=== PATIENT | female | born 1970 | race American Indian/Alaskan Native ===

== ENCOUNTER 2019-12-21 08:40 | Emergency (ER) | payer OTHER ==
[2019-12-21 08:48] VITALS: BP 125/81
[2019-12-21] MEDS ORDERED: LIDOCAINE (1%) 10 MG/1 ML VIAL 20 ML MDV INFILTRATI ONE (09:07)
--- NOTE | 2019-12-21 09:09 | Emergency Department Report ---
HPI - General Chief Complaint: Skin/Abscess/Foreign Body Time Seen by Provider: 12/21/19 08:58 - HPI HPI: This is a 49-year-old female presents to the emergency department with a complaint of a one-week history of a "boil" to the right armpit and to the left side of the head/neck, just behind the left ear. The patient went to an urgent care and was told to use some warm compresses but that has not been providing any relief. She denies any other past medical history. She denies any fever, headache. No recent travel or sick contacts at home. The patient has never had this occur previously. ED Past Medical Hx - Past Medical History Previous Medical History?: No - Surgical History Past Surgical History?: Yes Hx Breast Surgery: Yes (augmentation) Additional Surgical History: tubaligatiion - Social History Smoking Status: Never Smoker Substance Use Type: None - Medications Home Medications: Home Medications Medication Instructions Recorded Confirmed Last Taken Type Sulfamethoxazole/Trimethoprim 1 each PO BID #14 tablet 12/21/19 Unknown Rx [Bactrim DS TAB] ED Review of Systems ROS: Stated complaint: RT ARMPIT BOIL/PAIN Other details as noted in HPI Comment: All other systems reviewed and negative Constitutional: denies: chills, fever ENT: denies: ear pain Skin: lesions Neurological: denies: headache, weakness Physical Exam - Physical Exam Vital Signs: Vital Signs 12/21/19 08:44 Temperature 97.8 F Pulse Rate 86 Respiratory 20 Rate Blood Pressure 125/81 O2 Sat by Pulse 100 Oximetry Physical Exam: GENERAL: The patient is well-developed well-nourished. HENT: Normocephalic. Atraumatic. Patient has moist mucous membranes. EYES: Extraocular motions are intact. NECK: Supple. Trachea is midline. ABDOMEN: There is no abdominal distention. SKIN: There is an abscess or hidradenitis suppertiva to the right axilla that is about 4 inches in its greatest diameter and fluctuant. The area is tender to palpation. No surrounding erythema. There is a small indurated abscess to the left lateral neck just below and posterior to the left ear. NEURO: The patient is awake, alert, and oriented. The patient is cooperative. The patient has no focal neurologic deficits. Normal speech. MUSCULOSKELETAL: There is no tenderness or deformity. There is no evidence of acute injury. ED Course Vital Signs 12/21/19 08:44 Temperature 97.8 F Pulse Rate 86 Respiratory 20 Rate Blood Pressure 125/81 O2 Sat by Pulse 100 Oximetry - I & D Right Arm Type of Procedure: Simple Site: right axilla Blade Size: 11 I & D Procedure: betadine prep, sterile drapes applied, sterile dressing applied, gauze wick placed ED Medical Decision Making - Medical Decision Making The patient has an abscess to the right axilla that was incised and drained. Iodoform gauze was packed. The abscess behind the left ear is more indurated and I do not believe would have much purulent return if it were incised. The patient has been placed on antibiotics. She will continue to use warm compresses. She will follow-up in 2 days for removal of packing and a wound check of the right axilla. She will return to the ER with any worsening of her symptoms or any acute distress. Critical Care Time: No Critical care attestation.: If time is entered above; I have spent that time in minutes in the direct care of this critically ill patient, excluding procedure time. ED Disposition Clinical Impression: Hidradenitis suppurativa of right axilla, Neck abscess Disposition: - TO HOME OR SELFCARE Is pt being admited?: No Condition: Stable Instructions: Abscess Incision and Drainage (ED), Abscess (ED) Additional Instructions: Please take the antibiotics as prescribed. Use warm compresses to the areas of your abscesses to try and express further infection. If the packing does not fall out on its own from your right armpit, it should be removed in 2 days and you should have a wound check. This can be done at a primary care physician's office, urgent care, or you can return to an emergency department. Please make sure you are seen immediately with any worsening of your symptoms, worsening or new pain, development of fever, or with any acute distress. Prescriptions: Sulfamethoxazole/Trimethoprim [Bactrim DS TAB] 1 each PO BID #14 tablet Referrals: PRIMARY CARE, [Primary Care Provider] - 2-3 Days Time of Disposition: 09:52
== END 2019-12-21 10:45 | disposition home or self-care (01) ==
LOC: ED 08:40
DX: L73.2 Hidradenitis suppurativa (principal); L02.11 Cutaneous abscess of neck; Z79.899 Other long term (current) drug therapy; Z98.890 Other specified postprocedural states; Z98.51 Tubal ligation status